=== PATIENT | male | born 1965 | race African-American/Black ===

== ENCOUNTER 2017-03-18 10:20 | Emergency (ER) | payer MEDICAID ==
[~2017-03-18] VITALS: Ht 175.3 cm; Wt 88.0 kg
[2017-03-18 11:16] VITALS: BP 112/91
== END 2017-03-18 16:50 | disposition left against medical advice (07) ==
LOC: ER 16:06
DX: K64.9 Unspecified hemorrhoids (principal); Z53.21 Procedure and treatment not carried out due to patient leaving prior to being seen by health care provider